=== PATIENT | female | born 1985 | race Caucasian/White ===

== ENCOUNTER 2020-03-20 21:01 | Emergency (ER) | payer OTHER, SELFPAY ==
[2020-03-21] MEDS ORDERED: HYDROCODONE/APAP 7.5/325 MG TAB ONE (00:46)
[2020-03-21] MEDS ORDERED: LIDOCAINE 1% MPF 5 ML VIAL ONE ×2 (01:24→01:36)
--- NOTE | 2020-03-21 01:41 | ER ---
Nurse's Notes 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 ll1 Deep laceration to tip of finger, bleeding controlled. Coronavirus screen: Proceed with normal triage. Patient denies a cough. Patient denies shortness of breath or difficulty breathing. Patient denies measured and/or subjective temperature greater than 100.4F prior to today's visit. Patient denies travel on a cruise ship or to a country the [facility] [place] currently [place] as an affected area. Patient denies contact with known and/or suspected case of COVID-19. Ebola Screen: Patient denies travel to an Ebola-affected area in the 21 days before illness onset. Initial Sepsis Screen: Does the patient meet any 2 criteria? No. Patient's initial sepsis screen is negative. Does the patient have a suspected source of infection? No. Patient's initial sepsis screen is negative. Risk Assessment: Do you want to hurt yourself or someone else? Patient reports no desire to harm self or others. Onset of symptoms was March 20, 2020. 21:12 Method Of Arrival: Ambulatory [facility] 21:12 Acuity: PRESLEY 3 ll1 Historical: - Allergies: 21:14 No Known Allergies; ll1 - PMHx: 21:14 Asthma; ll1 - PSHx: 21:14 ; ll1 - Immunization history:: Last tetanus immunization: < 5 years ago. - Social history:: Smoking status: Patient reports the use of cigarette tobacco products, smokes one-half pack cigarettes per day, Patient/guardian denies using alcohol, street drugs. Screenin/02 00:53 Abuse screen: Denies threats or abuse. Denies injuries from another. Nutritional mg2 screening: No deficits noted. Tuberculosis screening: No symptoms or risk factors identified. Fall Risk None identified. Assessment: 00:52 General: Appears in no apparent distress. comfortable, Behavior is calm, cooperative. mg2 Pain: Complains of pain in left hand. Neuro: Level of Consciousness is awake, alert, obeys commands, Oriented to person, place, time, situation. Cardiovascular: Capillary refill < 3 seconds Patient's skin is warm and dry. Respiratory: Airway is patent Respiratory effort is even, unlabored, Respiratory pattern is regular, symmetrical. GI: No signs and/or symptoms were reported involving the gastrointestinal system. : No signs and/or symptoms were reported regarding the genitourinary system. EENT: No signs and/or symptoms were reported regarding the EENT system. Derm: Wound noted left index finger. Vital Signs: 03/20 21:12 BP 105 / 87; Pulse 88; Resp 17; Temp 98.0; Pulse Ox 98% ; Pain 10/10; ll1 03/21 01:55 BP 110 / 56; Pulse 80; Resp 17; Temp 98; Pulse Ox 100% on R/A; mg2 ED Course: 03/20 21:02 Patient arrived in ED. cl3 21:08 Patient's name was called from ER lobby. No response. Unable to locate patient. Will ll1 disposition as left without being seen by a provider. 21:13 Triage completed. ll1 03/21 00:23 Eulalio Thornton MD is Attending Physician. pkl 00:37 Cristian Acosta, DONNA is Primary Nurse. mg2 00:53 Patient has correct armband on for positive identification. mg2 00:53 Arm band placed on. mg2 01:15 Hand Left 2 View XRAY In Process Unspecified. EDMS 01:56 Assist provider with laceration repair on left index finger that was between 2.6 to 7.5 mg2 cm using sutures. Set up tray. Performed by Eulalio Thornton MD Dressed with 4X4s, Neosporin, Patient tolerated well. 01:58 IV discontinued, intact, bleeding controlled, No redness/swelling at site. Pressure mg2 dressing applied. Administered Medications: 00:45 Drug: [place] (7.5 mg-325 mg) 1 tabs Route: PO; mg2 01:50 Follow up: Response: No adverse reaction mg2 01:56 Drug: KeFLEX 500 mg Route: PO; mg2 01:56 Follow up: Response: No adverse reaction; Medication administered at discharge. mg2 01:56 Drug: traMADol 50 mg Route: PO; mg2 01:56 Follow up: Response: No adverse reaction; Medication administered at discharge. mg2 Outcome: 01:41 Discharge ordered by . pkl 01:57 Discharged to home ambulatory. mg2 01:57 Condition: stable 01:57 Discharge instructions given to patient, Instructed on discharge instructions, follow up and referral plans. medication usage, wound care, Demonstrated understanding of instructions, follow-up care, medications, wound care, Prescriptions given X 2. 01:58 Patient left the ED. mg2 Signatures: Dispatcher [employer] EDMS Eulalio Thornton MD MD pkl Gardose, Michele, RN RN mg2 Maryam Sam 3 Jimmy Sam RN RN ll1
--- NOTE | 2020-03-21 01:42 | EDPHYS ---
Physician Documentation [facility] Name: Ashlee Bolton Age: 34 yrs Sex: Female : 1985 Arrival Date: 03/20/2020 Time: 21:02 Bed 17 Private MD: ED Physician Eulalio Thornton HPI: 03/21 00:35 This 34 yrs old Female presents to ER via Ambulatory with complaints of pkl Laceration To Finger. 00:35 The patient or guardian reports injury, a laceration, 1.5 cm(s), pain. The complaints pkl affect the. Context: resulted from cut distal left index finger with knife. Onset: The symptoms/episode began/occurred gradually, just prior to arrival. Historical: - Allergies: 03/20 21:14 No Known Allergies; ll1 - PMHx: 21:14 Asthma; ll1 - PSHx: 21:14 ; ll1 - Immunization history:: Last tetanus immunization: < 5 years ago. - Social history:: Smoking status: Patient reports the use of cigarette tobacco products, smokes one-half pack cigarettes per day, Patient/guardian denies using alcohol, street drugs. ROS: 03/21 00:35 Eyes: Negative for injury, pain, redness, and discharge, ENT: Negative for injury, pkl pain, and discharge, Neck: Negative for injury, pain, and swelling, Cardiovascular: Negative for chest pain, palpitations, and edema, Respiratory: Negative for shortness of breath, cough, wheezing, and pleuritic chest pain, Abdomen/GI: Negative for abdominal pain, nausea, vomiting, diarrhea, and constipation, Back: Negative for injury and pain, : Negative for injury, bleeding, discharge, and swelling, Skin: Negative for injury, rash, and discoloration, Neuro: Negative for headache, weakness, numbness, tingling, and seizure. MS/extremity: Positive for laceration, of the distal left index finger. Exam: 00:35 Head/Face: Normocephalic, atraumatic. Eyes: Pupils equal round and reactive to light, pkl extra-ocular motions intact. Lids and lashes normal. Conjunctiva and sclera are non-icteric and not injected. Cornea within normal limits. Periorbital areas with no swelling, redness, or edema. ENT: Nares patent. No nasal discharge, no septal abnormalities noted. Tympanic membranes are normal and external auditory canals are clear. Oropharynx with no redness, swelling, or masses, exudates, or evidence of obstruction, uvula midline. Mucous membranes moist. Neck: Trachea midline, no thyromegaly or masses palpated, and no cervical lymphadenopathy. Supple, full range of motion without nuchal rigidity, or vertebral point tenderness. No Meningismus. Chest/axilla: Normal chest wall appearance and motion. Nontender with no deformity. No lesions are appreciated. Cardiovascular: Regular rate and rhythm with a normal S1 and S2. No gallops, murmurs, or rubs. Normal PMI, no JVD. No pulse deficits. Respiratory: Lungs have equal breath sounds bilaterally, clear to auscultation and percussion. No rales, rhonchi or wheezes noted. No increased work of breathing, no retractions or nasal flaring. Abdomen/GI: Soft, non-tender, with normal bowel sounds. No distension or tympany. No guarding or rebound. No evidence of tenderness throughout. Back: No spinal tenderness. No costovertebral tenderness. Full range of motion. Neuro: Awake and alert, GCS 15, oriented to person, place, time, and situation. Cranial nerves II-XII grossly intact. Motor strength 5/5 in all extremities. Sensory grossly intact. Cerebellar exam normal. Normal gait. 00:35 Musculoskeletal/extremity: Extremities: grossly normal except: noted in the distal left index finger: laceration. Vital Signs: 03/20 21:12 BP 105 / 87; Pulse 88; Resp 17; Temp 98.0; Pulse Ox 98% ; Pain 10/10; ll1 03/21 01:55 BP 110 / 56; Pulse 80; Resp 17; Temp 98; Pulse Ox 100% on R/A; mg2 Laceration: 01:37 Wound Repair of 3cm ( 1.2in ) subcutaneous laceration to left index finger. Skin/tissue pkl flap noted.. Minimal bleeding noted.. Distal neuro/vascular/tendon intact. Anesthesia: Local anesthetic administered with 5 mls of 1% lidocaine. Wound prep: Extensive cleansing by me, Wound irrigation. Skin closed with 6 3-0 Prolene using simple sutures and sterile technique. Dressed with tube gauze. Patient tolerated well. MDM: 00:23 Patient medically screened. pkl 01:37 Data reviewed: vital signs, nurses notes, radiologic studies, plain films. pkl 03/21 00:26 Order name: Hand Left 2 View XRAY pkl Administered Medications: 00:45 Drug: [place] (7.5 mg-325 mg) 1 tabs Route: PO; mg2 01:50 Follow up: Response: No adverse reaction mg2 01:56 Drug: KeFLEX 500 mg Route: PO; mg2 01:56 Follow up: Response: No adverse reaction; Medication administered at discharge. mg2 01:56 Drug: traMADol 50 mg Route: PO; mg2 01:56 Follow up: Response: No adverse reaction; Medication administered at discharge. mg2 Disposition: 03/21/20 01:41 Discharged to Home. Impression: Laceration distal left index finger. - Condition is Stable. - Prescriptions for Keflex 500 mg Oral Capsule - take 1 capsule by ORAL route every 8 hours for 10 days; 30 capsule. - Medication Reconciliation Form, Thank You Letter, Antibiotic Education, Prescription Opioid Use form. - Follow up: Private Physician; When: 1 week; Reason: Wound Recheck, Staple/Suture removal, Re-evaluation by your physician. - Problem is new. - Symptoms have improved. Signatures: Dispatcher [employer] EDMS Eulalio Thornton MD MD pkl Cristian Acosta RN RN mg2 Jimmy Sam RN RN ll1 Corrections: (The following items were deleted from the chart) 01:58 01:41 03/21/2020 01:41 Discharged to Home. Impression: Laceration distal left index mg2 finger. Condition is Stable. Forms are Medication Reconciliation Form, Thank You Letter, Antibiotic Education, Prescription Opioid Use. Follow up: Private Physician; When: 1 week; Reason: Wound Recheck, Staple/Suture removal, Re-evaluation by your physician. Problem is new. Symptoms have improved. pkl
[2020-03-21] MEDS ORDERED: CEPHALEXIN 250 MG CAP ONE (01:59)
[2020-03-21] MEDS ORDERED: TRAMADOL HCL 50 MG TAB ONE (01:59)
--- NOTE | 2020-03-21 08:33 | RAD REPORT ---
EXAM DESCRIPTION: RAD - Hand Left 2 View - 03/21/2020 1:15 am CLINICAL HISTORY: lac. left index finger Pain and swelling COMPARISON: No comparisons FINDINGS: Large laceration is seen distal tip second finger. No fracture or radiopaque foreign body evident.
== END 2020-03-21 01:58 | disposition home or self-care (01) ==
LOC: ER 21:01
PROC: 0JQK0ZZ Repair Left Hand Subcutaneous Tissue and Fascia, Open Approach (ICD-10-PCS; principal; 2020-03-21)
DX: S61.211A Laceration without foreign body of left index finger without damage to nail, initial encounter (principal); W26.0XXA Contact with knife, initial encounter; Y93.9 Activity, unspecified; Y92.9 Unspecified place or not applicable
CPT/HCPCS: 99284